=== PATIENT | male | born 1985 | race Caucasian/White ===

== ENCOUNTER 2021-03-21 09:13 | Emergency (ER) | payer OTHER ==
[2021-03-21] MEDS ORDERED: PERMETHRIN CREA60 GM TOP (10:22)
[2021-03-21] MEDS ORDERED: ATARAX25 MG PO (10:22)
[2021-03-21] MEDS ORDERED: BACTROBAN NASAL1 GM TOP (10:22)
[2021-03-21] MEDS ORDERED: IVERMECTIN3 MG PO (10:22)
== END 2021-03-21 10:40 | disposition home or self-care (01) ==
LOC: FER 09:13
DX: B86 Scabies (principal); F17.210 Nicotine dependence, cigarettes, uncomplicated; Z88.0 Allergy status to penicillin; Z88.1 Allergy status to other antibiotic agents
CPT/HCPCS: 99282